=== PATIENT | female | born 1980 | race American Indian/Alaskan Native ===

== ENCOUNTER 2022-04-14 09:19 | Emergency (ER) | payer MEDICAID ==
[2022-04-14 10:15] LABS: Basophils % (Auto) 0.2 % (0.0-1.8); Eosinophils # (Auto) 0.1 K/mm3 (0.0-0.4); Eosinophils % (Auto) 1.3 % (0.0-4.3); Hematocrit 36.4 % (30.3-42.9); Hemoglobin 12.6 gm/dl (10.1-14.3); Lymphocytes # (Auto) 1.8 K/mm3 (1.2-5.4); Lymphocytes % (Auto) 36.9 % (13.4-35.0); Mean Corpuscular HGB Conc 35 % (30-34); Mean Corpuscular Volume 92 fl (79-97); Monocytes # (Auto) 0.3 K/mm3 (0.0-0.8); Monocytes % (Auto) 6.9 % (0.0-7.3); Platelet Count 211 K/mm3 (140-440); Red Blood Count 3.97 M/mm3 (3.65-5.03)
[2022-04-14 10:36] LABS: Alanine Aminotransferase 10 units/L (7-56); Albumin 4.2 g/dL (3.9-5); BUN/Creatinine Ratio 10; Blood Urea Nitrogen 8 mg/dL (7-17); Calcium 8.6 mg/dL (8.4-10.2); Hemolysis Index 8
[2022-04-14 10:53] LABS: Bilirubin,Urine NEG (Negative); Blood,Urine MOD (Negative); Color,Urine Yellow (Yellow); Urobilinogen,Urine < 2.0 mg/dL (<2.0)
[2022-04-14 10:54] LABS: Mucus,Urine 3+ /HPF
[2022-04-14] MEDS ORDERED: KETOROLAC 10 MG TAB PO ONE (12:42)
[2022-04-14] MEDS ORDERED: ONDANSETRON 4 MG ODT TAB PO ONE (12:42)
[2022-04-14] MEDS ORDERED: oxyCODONE /ACETAMINOPHEN 5-325MG TAB PO ONE (12:42)
--- NOTE | 2022-04-14 13:36 | Cat Scan Report ---
CT ABDOMEN AND PELVIS WITHOUT CONTRAST HISTORY: right flank pain WO CONTRAST. COMPARISON: None. TECHNIQUE: CT images of the abdomen and pelvis were obtained without administration of intravenous co ntrast. All CT scans at this location are performed using CT dose reduction for ALARA by means of au tomated exposure control. FINDINGS: Lungs/bones: Lung bases are clear. No acute osseous abnormality identified. Abdomen/pelvis: There is a nonobstructive calyceal stone in the midpole left kidney measuring 2 mm. No stone disease in the right. No mass, cyst, or hydronephrosis. The gallbladder surgically absent. The liver is unremarkable. No biliary ductal dilatation. The splee n, pancreas, adrenals, and proximal GI tract appear unremarkable. Urinary bladder and reproductive organs are unremarkable with no pelvic free fluid identified. There are occasional colonic diverticula with no acute inflammation. The terminal ileum and the appendix ap pear normal. IMPRESSION: 1. No acute abnormality identified. 2. Nonobstructive nephrolithiasis in the left kidney. Signer Name: Gabriel Álvarez MD Signed: 04/14/2022 1:31 PM Workstation Name: [id number]
--- NOTE | 2022-04-14 13:51 | Emergency Department Report ---
ED Abdominal Pain HPI - General Chief Complaint: Nausea/Vomiting/Diarrhea Stated Complaint: NAUSEA/VOMITING Time Seen by Provider: 04/14/22 12:33 Source: patient Mode of arrival: Ambulatory Limitations: No Limitations - History of Present Illness Initial Comments: 41 yo white female with a pmh of kidney stones presents to ED for evaluation of few hour history of bilateral flank pain that radiates to her bilateral lower abdomen. She states that pain is associated with n/v but denies fever, diarrhea, dysruia, and vaginal discharge. MD Complaint: flank pain -: Sudden, hour(s) Location: bilateral flank Radiation: LLQ, RLQ Migration to: no migration Severity scale (0 -10): 10 Quality: cramping, aching Consistency: constant Associated Symptoms: nausea, vomiting. denies: diarrhea, fever, chills, dysuria, hematemesis, hematochezia, melena, hematuria, anorexia, syncope - Related Data Previous Rx's Medication Instructions Recorded Last Taken Type Acetaminophen/Codeine [Tylenol 1 tab PO Q6H PRN #15 tab 04/14/22 Unknown Rx /Codeine # 3 tab] Ketorolac [Toradol] 10 mg PO Q6H PRN #12 tab 04/14/22 Unknown Rx Ondansetron [Zofran Odt] 4 mg PO Q8HR PRN #12 tab.rapdis 04/14/22 Unknown Rx cephALEXin [Keflex] 500 mg PO BID 7 Days #14 cap 04/14/22 Unknown Rx Allergies Allergy/AdvReac Type Severity Reaction Status Date / Time Sulfa (Sulfonamide Allergy Hives Verified 04/14/22 09:50 Antibiotics) ED Review of Systems ROS: Stated complaint: NAUSEA/VOMITING Other details as noted in HPI Comment: All other systems reviewed and negative Constitutional: denies: chills, fever Respiratory: denies: shortness of breath Cardiovascular: denies: chest pain, palpitations Gastrointestinal: abdominal pain, nausea, vomiting. denies: diarrhea, hematemesis, melena, hematochezia Genitourinary: denies: urgency, dysuria, frequency, hematuria, discharge Musculoskeletal: back pain Skin: denies: rash, lesions Neurological: denies: headache, weakness Psychiatric: denies: anxiety, depression ED Past Medical Hx - Past Medical History Hx Asthma: Yes - Surgical History Hx Cholecystectomy: Yes Additional Surgical History: tonsillectomy - Medications Home Medications: Home Medications Medication Instructions Recorded Confirmed Last Taken Type Acetaminophen/Codeine [Tylenol 1 tab PO Q6H PRN #15 tab 04/14/22 Unknown Rx /Codeine # 3 tab] Ketorolac [Toradol] 10 mg PO Q6H PRN #12 tab 04/14/22 Unknown Rx Ondansetron [Zofran Odt] 4 mg PO Q8HR PRN #12 tab.rapdis 04/14/22 Unknown Rx cephALEXin [Keflex] 500 mg PO BID 7 Days #14 cap 04/14/22 Unknown Rx ED Physical Exam - General Limitations: No Limitations General appearance: alert, in no apparent distress - Head Head exam: Present: atraumatic, normocephalic - Eye Eye exam: Present: normal appearance. Absent: conjunctival injection - Neck Neck exam: Present: normal inspection, full ROM. Absent: tenderness, lymphadenopathy - Respiratory Respiratory exam: Present: normal lung sounds bilaterally. Absent: respiratory distress, wheezes, rales, rhonchi, stridor, chest wall tenderness - Cardiovascular Cardiovascular Exam: Present: regular rate, normal heart sounds - GI/Abdominal GI/Abdominal exam: Present: soft, guarding, normal bowel sounds. Absent: distended, tenderness, rebound, rigid - Extremities Exam Extremities exam: Present: normal inspection, normal capillary refill. Absent: full ROM, tenderness, pedal edema, joint swelling, calf tenderness - Back Exam Back exam: Present: normal inspection, CVA tenderness (R), CVA tenderness (L). Absent: vertebral tenderness - Neurological Exam Neurological exam: Present: alert, oriented X3 - Psychiatric Psychiatric exam: Present: normal affect, normal mood - Skin Skin exam: Present: warm, dry, intact, normal color ED Course Vital Signs 04/14/22 04/14/22 09:44 14:21 Temperature 98.4 F 97.8 F Pulse Rate 78 74 Respiratory 18 20 Rate Blood Pressure 138/82 128/74 [Left] O2 Sat by Pulse 99 98 Oximetry ED Medical Decision Making - Lab Data Result diagrams: 04/14/22 09:57 04/14/22 09:57 - Radiology Data Radiology results: report reviewed, image reviewed CT abdomen and pelvis without contrast: FINDINGS: Lungs/bones: Lung bases are clear. No acute osseous abnormality identified. Abdomen/pelvis: There is a nonobstructive calyceal stone in the midpole left kidney measuring 2 mm. No stone disease in the right. No mass, cyst, or hydronephrosis. The gallbladder surgically absent. The liver is unremarkable. No biliary ductal dilatation. The spleen, pancreas, adrenals, and proximal GI tract appear unremarkable. Urinary bladder and reproductive organs are unremarkable with no pelvic free fluid identified. There are occasional colonic diverticula with no acute inflammation. The termi nal ileum and the appendix appear normal. IMPRESSION: 1. No acute abnormality identified. 2. Nonobstructive nephrolithiasis in the left kidney. - Medical Decision Making 41 yo white female with a pmh of kidney stones presents to ED for evaluation of few hour history of bilateral flank pain that radiates to her bilateral lower abdomen. She states that pain is associated with n/v but denies fever, diarrhea, dysruia, and vaginal discharge. CT noted to have non obstructive kidney stone to left kidney. Urine positive for UTI. Pain improved after medication. Patient will be discharged with toradol, zofran, tylenol # 3 and keflex to take as directed. She is advised to follow up with urology for further evaluation and management or return to ED as needed. She verbalized understanding of and agreement with plan of care. Critical care attestation.: If time is entered above; I have spent that time in minutes in the direct care of this critically ill patient, excluding procedure time. ED Disposition Clinical Impression: Kidney stone, Flank pain Disposition: 01 HOME / SELF CARE / HOMELESS Is pt being admited?: No Does the pt Need Aspirin: No Condition: Stable Instructions: Low-Purine Eating Plan, Kidney Stones, [id number], Dietary Guidelines to Help Prevent Kidney Stones Additional Instructions: Take medications as prescribed. Follow-up with urology for further evaluation and management. Return to the emergency department as needed. Prescriptions: cephALEXin [Keflex] 500 mg PO BID 7 Days #14 cap Ketorolac [Toradol] 10 mg PO Q6H PRN #12 tab PRN Reason: Pain Acetaminophen/Codeine [Tylenol /Codeine # 3 tab] 1 tab PO Q6H PRN #15 tab PRN Reason: Pain , Severe (7-10) Ondansetron [Zofran Odt] 4 mg PO Q8HR PRN #12 tab.rapdis PRN Reason: Nausea And Vomiting Referrals: WHIT VARGAS MD [Staff Physician] - 3-5 Days ALBER MCMAHON MD [Staff Physician] - 3-5 Days Time of Disposition: 13:51
[2022-04-14 14:22] VITALS: BP 128/74
== END 2022-04-14 14:21 | disposition home or self-care (01) ==
LOC: ED 09:19
DX: N20.0 Calculus of kidney (principal); R10.31 Right lower quadrant pain; R10.32 Left lower quadrant pain; J45.909 Unspecified asthma, uncomplicated; Z90.49 Acquired absence of other specified parts of digestive tract; Z88.0 Allergy status to penicillin; Z79.899 Other long term (current) drug therapy
CPT/HCPCS: 36415; 74176; 80053; 81001; 83690; 84703; 85025; 87086; 99284; J3490; Q0162